=== PATIENT | female | born 2000 | race Two or more races ===

== ENCOUNTER 2021-03-16 19:06 | Emergency (ER) | payer SELFPAY ==
[~2021-03-16] VITALS: Ht 160 cm; Wt 113.0 kg
[2021-03-17 00:52] VITALS: BP 154/92
[2021-03-17 01:27] LABS: INFLUENZA A PATIENT NEGATIVE (NEGATIVE); INFLUENZA B PATIENT NEGATIVE (NEGATIVE)
[2021-03-17] MEDS ORDERED: AZIT250T PO (01:59)
--- NOTE | 2021-03-17 02:00 | PHYS DOC ---
Past Medical History Past Medical History: No Pertinent History Past Surgical History: No Surgical History Smoking Status: Never Smoker Alcohol Use: None Drug Use: None General Adult EDM: Chief Complaint: FLU SYMPTOM HPI: HPI: Patient is a 20 year old male presents for evaluation of Covid-like symptoms. Patient states symptoms been ongoing since Monday chills fever muscle aches cough. Patient did a home test on Monday which was negative for Covid. Patient states symptoms still persist would like to be evaluated. Patient denies any chest pain. On exam patient is alert and oriented x4 her ox saturation is 99% on room air. Review of Systems: Review of Systems: Review of systems: Constitutional symptoms-positive fever chills Eyes- No Discharge, No Visual Loss Respiratory symptoms-positive shortness of breath, No wheezing, No Dyspnea on Exertion positive cough Cardiovascular Systems; No chest pain, No Palpitations, No syncope Gastrointestinal symptoms: NO abdominal pain, no nausea, no vomiting or diarrhea. Genitourinary symptoms: No dysuria. Musculoskeletal symptoms: No back pain No extremity pain. Positive myalgia NEUROLOGICAL Symptoms: No headache, no generalized weakness; No focal Weakness Skin: No rash. Heart Score: C/O Chest Pain: N/A Risk Factors: Risk Factors: DM, Current or recent (<one month) smoker, HTN, HLP, family history of CAD, obesity. Risk Scores: Score 0 - 3: 2.5% MACE over next 6 weeks - Discharge Home Score 4 - 6: 20.3% MACE over next 6 weeks - Admit for Clinical Observation Score 7 - 10: 72.7% MACE over next 6 weeks - Early Invasive Strategies Physical Exam: PE: Constitutional: Well developed, well nourished, no acute distress, non-toxic appearance. [] HENT: Normocephalic, atraumatic, bilateral external ears normal, oropharynx moist, no oral exudates, nose normal. [] Eyes: PERRLA, EOMI, conjunctiva normal, no discharge. [] Neck: Normal range of motion, no tenderness, supple, no stridor. [] Cardiovascular:Heart rate regular rhythm, no murmur [] Lungs & Thorax: Bilateral breath sounds clear to auscultation [] Abdomen: Bowel sounds normal, soft, no tenderness, no masses, no pulsatile masses. [] Skin: Warm, dry, no erythema, no rash. [] Back: No tenderness, no CVA tenderness. [] Extremities: No tenderness, no cyanosis, no clubbing, ROM intact, no edema. [] Neurologic: Alert and oriented X 3, normal motor function, normal sensory function, no focal deficits noted. [] Psychologic: Affect normal, judgement normal, mood normal. [] Current Patient Data: Labs: Laboratory Tests Test 03/17/21 00:45 Influenza Type A Antigen Negative (NEGATIVE) Influenza Type B Antigen Negative (NEGATIVE) SARS-CoV-2 Antigen (Rapid) Negative (NEGATIVE) Vital Signs: Vital Signs Date Time Temp Pulse Resp B/P (MAP) Pulse Ox O2 Delivery O2 Flow Rate FiO2 03/17/21 00:52 98.9 114 13 154/92 (112) 100 Room Air 98.9 EKG: EKG: [] Radiology/Procedures: Radiology/Procedures: [] Course & Med Decision Making: Course & Med Decision Making Pertinent Labs and Imaging studies reviewed. (See chart for details) [] Dragon Disclaimer: Dragon Disclaimer: This electronic medical record was generated, in whole or in part, using a voice recognition dictation system. Departure Departure Impression: Primary Impression: Viral syndrome Disposition: HOME / SELF CARE / HOMELESS Condition: STABLE Referrals: NO PCP (PCP) Patient Instructions: Viral Syndrome Scripts Azithromycin (ZITHROMAX) 250 Mg Tablet 1 PKG PO UD, #6 TAB Prov: NEFTALI ALEJANDRO DO 03/17/21 NEFTALI ALEJANDRO DO Mar 17, 2021 02:00
--- NOTE | 2021-03-17 15:47 | NUR ---
IP: Informed pt of negative covid test. Pt verbalized understanding.
== END 2021-03-17 02:50 | disposition home or self-care (01) ==
LOC: ER 19:06
DX: B34.9 Viral infection, unspecified (principal); Z20.822 Contact with and (suspected) exposure to COVID-19
CPT/HCPCS: 87426; 87804; 99283; U0003; U0005